=== PATIENT | female | born 1995 | race Caucasian/White ===

== ENCOUNTER 2022-12-10 10:38 | Outpatient (CLI) | payer OTHER ==
[~2022-12-10] VITALS: Ht 157.5 cm; Wt 54.1 kg
--- NOTE | 2022-12-10 10:50 | NUR ---
PT AMBULATORY TO LR2 WITH SPOUSE. PT DENIES VAGINAL BLEEDING, LEAKING OF FLUID, OR REGULAR CONTRACTIONS. PT REPORTS GOOD MOVEMENT. PT CHANGED INTO CLEAN GOWN. PT HERE FOR EXTERNAL VERSION. FHR MONITOR/TOCO APPLIED. MATERNAL VITAL SIGNS WNL. PLAN OF CARE DISCUSSED. PT VERBALIZES UNDERSTANDING.
[2022-12-10] MEDS ORDERED: PRENATAL TABLET PO (11:07)
[2022-12-10 11:30] VITALS: PULSE 80
[2022-12-10 12:00] VITALS: PULSE 67
[2022-12-10 12:06] VITALS: BP 101/64; PULSE 68
--- NOTE | 2022-12-10 12:20 | NUR ---
1206 DR QUINTERO AND DR KNOX AT PT'S BEDSIDE TO ATTEMPT EXTERNAL VERSION EXTERNAL VERSION ATTEMPT FAILED. 1219 THIS RN APPLIES FHR MONITOR/TOCO.
[2022-12-10 13:00] VITALS: BP 88/56; PULSE 73
--- NOTE | 2022-12-10 13:00 | NUR ---
THIS RN GIVES REPORT TO Nestor VALLEJO RN
[2022-12-10 13:20] VITALS: BP 90/55; PULSE 67
--- NOTE | 2022-12-10 13:25 | NUR ---
Discharge instructions and follow up care reviewed with pt and at the bedside. Both verbalized an understanding, agreed with the plan and states no questions or concerns at this time.
== END 2022-12-10 13:30 | disposition home or self-care (01) ==
LOC: LDRO 10:38
DX: O32.1XX0 Maternal care for breech presentation, not applicable or unspecified (principal); Z3A.38 38 weeks gestation of pregnancy
CPT/HCPCS: J3105; J7120